=== PATIENT | female | born 1965 | race Caucasian/White ===

== ENCOUNTER 2018-09-21 08:40 | Day surgery (SDC) | payer OTHER ==
[2018-09-20 10:25] VITALS: BMI 25.4
[2018-09-21 10:25] LABS: PH,URINE 6.5 (5.0-8.0); URINE APPEARANCE CLEAR; URINE BILIRUBIN NEGATIVE (NEGATIVE); URINE COLOR YELLOW; URINE GLUCOSE (UA) NEGATIVE (NEGATIVE); URINE KETONE NEGATIVE (NEGATIVE); URINE LEUK ESTERASE NEGATIVE (NEGATIVE); URINE NITRITE NEGATIVE (NEGATIVE); URINE PROTEIN NEGATIVE (NEGATIVE); URINE UROBILINOGEN 0.2 mg/dL (0.2-1.0)
[2018-09-21 10:28] LABS: HCG,QUALITATIVE URINE Negative
[2018-09-21] MEDS ORDERED: PROMETHAZINE HCL 25 MG/1 ML VIAL IVPUSH PRN (12:14)
[2018-09-21] MEDS ORDERED: oxyCODONE HCL 5 MG TABLET PO PRN (12:14)
[2018-09-21] MEDS ORDERED: ONDANSETRON 4 MG/2 ML VIAL IVPUSH PRN (12:14)
[2018-09-21] MEDS ORDERED: LACTATED RINGERS SOLUTION 1,000 ML IV SCH (12:15)
[2018-09-21] MEDS ORDERED: PROPOFOL 20 ML ONE ×2 (12:30→13:12)
[2018-09-21] MEDS ORDERED: MIDAZOLAM HCL 2 MG/2 ML SINGLE DOSE VIAL ONE (12:30)
[2018-09-21] MEDS ORDERED: LIDOCAINE HCL/PF 2% SDV 5ML VIAL ONE (12:40)
[2018-09-21] MEDS ORDERED: ceFAZolin SODIUM 1 GM VIAL ONE (12:40)
[2018-09-21] MEDS ORDERED: SODIUM CHLORIDE 0.9% P/F 10 ML VIAL IJ ONE (12:40)
[2018-09-21] MEDS ORDERED: ceFAZolin SODIUM 1 GM VIAL IVPB ONE (12:42)
[2018-09-21] MEDS ORDERED: LIDOCAINE HCL 1%, 10 MG/ML (20ML VIAL) NR ONE ×3 (12:50)
[2018-09-21] MEDS ORDERED: LIDOCAINE HCL 1%, 10 MG/ML (20ML VIAL) ONE ×2 (13:00→13:04)
[2018-09-21] MEDS ORDERED: oxyCODONE HCL 5 MG TABLET PO ONE (14:55)
[2018-09-21] MEDS ORDERED: oxyCODONE HCL 5 MG TABLET ONE (14:55)
[2018-09-21 16:55] VITALS: TEMP 97.7
[2018-09-21 17:07] VITALS: BP 124/71; PULSE 66
--- NOTE | 2018-09-22 08:14 | OP ---
DATE OF OPERATION: 09/21/2018 PREOPERATIVE DIAGNOSIS: Right breast atypia. POSTOPERATIVE DIAGNOSIS: Right breast atypia. PROCEDURE: Right breast wire-localized lumpectomy. SURGEON: Meghana Ascencio MD ANESTHESIA: Local and IV sedation. ESTIMATED BLOOD LOSS: Minimal. COMPLICATIONS: None. This was a sterile procedure. INDICATIONS FOR PROCEDURE: Patient presented with a screening mammogram that resulted in a right stereotactic needle biopsy of the upper outer right breast posteriorly, and this showed atypical lobular hyperplasia and change. My recommendation was an excision of the area to make sure there is no further upgrade of the lesion. The procedure was discussed with all the questions answered. PROCEDURE IN DETAIL: Patient was brought to [facility] in [place], taken down to breast imaging where a wire was used to localize the clip in the upper outer right breast. She was brought to the operating room, and after IV sedation and IV antibiotics, the right breast was prepped and draped in the usual sterile fashion. The upper outer right breast was anesthetized with 1% lidocaine without epinephrine. A radial incision was made in the upper outer right breast, and a wire was used as a guide to get down to the area of interest. This was excised en bloc, tacked with long suture lateral, short suture superior, sent for specimen radiograph. The specimen radiograph showed the clip and wire to be intact within the specimen. This was then sent to Pathology for permanent section. Hemostasis was assured with electrocautery. The parenchyma was approximated with interrupted 2-0 Vicryl. Skin approximated with interrupted 3-0 Vicryl and running 4-0 Biosyn. A sterile dressing with Tegaderm and 4x4s was applied. She tolerated the procedure well and was taken to recovery in good condition. MEGHANA ASCENCIO M.D. [id number]
--- NOTE | 2018-09-25 16:15 | PATH ---
Surgical Pathology Report Patient Name: ESTHER LINO [facility]. Rec. #: [id number] /Age/Gender: 1965 (Age: 53) / F Account: [id number] Location: [facility] SUR[facility]ICAL Taken: 09/21/2018 Received: 09/21/2018 Reported: 09/25/2018 Physicians: Meghana Moore M.D. Specimen(s) Received RIGHT BREAST LUMPECTOMY Clinical History Right breast atypia Final Diagnosis RIGHT BREAST WIRE LOCALIZED LUMPECTOMY: BREAST TISSUE SHOWING FOCAL ATYPICAL LOBULAR HYPERPLASIA, AND PROLIFERATIVE FIBROCYSTIC CHANGES INCLUDING USUAL DUCTAL HYPERPLASIA (UDH), ADENOSIS, COLUMNAR CELL CHANGE, APOCRINE METAPLASIA, MICROCYSTS, STROMAL FIBROSIS, AND MICROCALCIFICATIONS. PRIOR BIOPSY SITE REACTIVE CHANGES PRESENT. Comment: Immunohistochemical stain E-Cadherin (block 7) performed and interpreted at [facility] demonstrates loss membranous staining in the areas of atypical lobular hyperplasia. Electronically Signed Geraldo Corcoran M.D. Gross Description Received fresh on an AccuGrid, labeled "right breast wire localized lumpectomy," is a 6.5 x 4.4 x 1.5 cm. richard-yellow, irregular, portion of fibroadipose tissue with a needle localization wire present. There is a short suture marking the superior aspect and a long suture marking the lateral aspect, per the surgeon. There is no skin or nipple present. The specimen is inked as follows: superior and lateral blue; inferior green; medial yellow; anterior red; deep black. The specimen is serially sectioned from medial to lateral. Sectioning reveals abundant dense white fibrous tissue. No definitive mass is identified. The specimen is entirely and sequentially submitted in 12 cassettes with the medial margin in cassette 1 and the lateral margin in cassette 12 (one bisected section each in cassettes 4/5, 6/7, 8/9, /). Total formalin fixation time: Approximately 6 hours DL/09/21/201809/21/2018
== END 2018-09-21 15:35 | disposition home or self-care (01) ==
LOC: JASU-SURG 08:40
PROVIDERS: ATTEND Surgery
PROC: 0HBT0ZZ Excision of Right Breast, Open Approach (ICD-10-PCS; principal; 2018-09-21 12:00)
DX: N60.11 Diffuse cystic mastopathy of right breast (principal); N60.21 Fibroadenosis of right breast; N60.91 Unspecified benign mammary dysplasia of right breast
CPT/HCPCS: 19281; 81003; 84703; 88307-TC; 88342-TC; 94760